=== PATIENT | female | born 1980 | race Caucasian/White ===

== ENCOUNTER → 2021-02-26 15:03 | Outpatient (CLI) | payer BC, SELFPAY ==
--- NOTE | ~2021-02-26 | US_ITS ---
EXAMINATION: US pelvic complete w TV DATE: 02/26/2021 15:29 INDICATION: Left lower quadrant pain. Comparison:No prior studies for comparison. TECHNIQUE: Multiple transabdominal and endovaginal sonographic images of the pelvis performed. FINDINGS: The uterus measures 10 x 5.3 x 6 cm. The endometrial complex measures 1.8 cm. The right ovary measures 2.4 x 1.7 x 1.9 cm and the left ovary measures . There are small follicles in each ovary. Normal doppler signal in both ovaries. There is no free fluid in the pelvis. There are no abnormal masses seen on either side. IMPRESSION: 1. Endometrial thickening measuring 1.8 cm. 2: Enlarged uterus. Reviewed, dictated and finalized at location A. [facility]
== END ==
PROVIDERS: PCP Family Medicine; Visit Provider Family Medicine
DX: R10.2 Pelvic and perineal pain (principal); N85.2 Hypertrophy of uterus
CPT/HCPCS: 76830; 76856